=== PATIENT | female | born 1945 | race Native Hawaiian/Other Pacific Islander ===

== ENCOUNTER 2018-08-08 07:28 | Outpatient (CLI) | payer OTHER ==
[~2018-08-08] VITALS: Ht 167.6 cm; Wt 73.5 kg
== END 2018-08-08 20:45 | disposition home or self-care (01) ==
LOC: NM 07:28
DX: R07.89 Other chest pain (principal); I10 Essential (primary) hypertension
CPT/HCPCS: A9500; J2785